=== PATIENT | female | born 1985 ===

== ENCOUNTER 2016-09-12 11:02 | Emergency (ER) | payer OTHER ==
[2016-09-12 11:07] VITALS: BP 122/51; PULSE 86; TEMP 98; O2SAT 98; BMI 27.9
[2016-09-12 11:20] VITALS: RESP 16
--- NOTE | 2016-09-12 12:15 | ED PDOC ---
HPI: Back Time Seen by Provider: 09/12/16 12:12 Chief Complaint (Nursing): Back Pain Chief Complaint (Provider): BACK PAIN History Per: Patient (31 Y/O FEMALE HERE FOR LOWER BACK PAIN X 2 DAYS. PATIENT STATES PAIN BEGAN DUE TO HEAVY LIFTING AT WORK. DENIES ANY FALL. NO COMPLAINT OF URINARY OR RECTAL INCONTINENCE. HAS ATTEMPTED ADVIL 2 TAB YESTERDAY WITHOUT RELIEF.) Past Medical History Reviewed: Historical Data, Nursing Documentation, Vital Signs Vital Signs: Last Vital Signs Temp 98 F 09/12/16 11:16 Pulse 86 09/12/16 11:16 Resp 16 09/12/16 11:16 BP 122/51 L 09/12/16 11:16 Pulse Ox 98 09/12/16 11:16 - Surgical History Surgical History: Denies: Back Surgery, CABG - Family History Family History: States: Unknown Family Hx - Immunization History Hx Tetanus Toxoid Vaccination: No Hx Influenza Vaccination: No Hx Pneumococcal Vaccination: No - Home Medications Home Medications: Ambulatory Orders Medication Instructions Recorded Sulfamethoxazole/Trimethoprim 1 tab PO BID #20 tab 01/19/13 [Bactrim DS 800 mg-160 mg] Fluconazole [Diflucan] 150 mg PO ONCE #2 tab 02/15/14 Amoxicillin 500 mg PO TID 10 Days 04/25/14 Ibuprofen [Motrin] 600 mg PO Q8 PRN #6 tab 04/25/14 Nitrofurantoin Macrocrystals 100 mg PO BID #13 cap 12/06/14 [Macrobid] Phenazopyridine Hydrochlorid2 200 mg PO TID #5 tab 12/06/14 [Pyridium] Fluconazole [Diflucan] 150 mg PO ONCE #1 tab 07/08/15 Ibuprofen 600 mg PO Q6 PRN #15 tablet 07/08/15 Azithromycin [Zithromax] 250 mg PO DAILY #6 tab 12/23/15 Naproxen [Naprosyn Tab] 375 mg PO Q8 PRN #21 tab 09/12/16 diaZEpam [Valium] 5 mg PO Q6 PRN #6 tab 09/12/16 - Allergies Allergies/Adverse Reactions: Allergies Allergy/AdvReac Type Severity Reaction Status Date / Time No Known Allergies Allergy Verified 09/12/16 11:16 Review of Systems ROS Statement: Except As Marked, All Systems Reviewed And Found Negative Musculoskeletal: Positive for: Back Pain Physical Exam - Reviewed Nursing Documentation Reviewed: Yes Vital Signs Reviewed: Yes - Physical Exam Appears: Positive for: Well, Non-toxic, No Acute Distress Head Exam: Positive for: ATRAUMATIC, NORMAL INSPECTION, NORMOCEPHALIC Skin: Positive for: Normal Color, Warm, DRY Eye Exam: Positive for: EOMI, Normal appearance, PERRL ENT: Positive for: Normal ENT Inspection Neck: Positive for: Normal, Painless ROM Cardiovascular/Chest: Positive for: Regular Rate, Rhythm Respiratory: Positive for: CNT, Normal Breath Sounds Gastrointestinal/Abdominal: Positive for: Normal Exam, Bowel Sounds, Soft Back: Positive for: Normal Inspection, Other (PARALUMBAR TENDERNESS NOTED.) Extremity: Positive for: Normal ROM Neurologic/Psych: Positive for: Alert, Oriented - ECG O2 Sat by Pulse Oximetry: 98 - Progress ED Course And Treament: TORADOL 30 MG IM X 1 DOSE Disposition - Clinical Impression Clinical Impression: Back strain - Patient ED Disposition Is Patient to be Admitted: No - Disposition Referrals: [facility] [Outside] Disposition: Routine/Home Disposition Time: 12:13 Condition: FAIR Prescriptions: diaZEpam [Valium] 5 mg PO Q6 PRN #6 tab PRN Reason: Pain, Severe (8-10) Naproxen [Naprosyn Tab] 375 mg PO Q8 PRN #21 tab PRN Reason: Pain, Moderate (4-7) Instructions: Sciatica (ED), Acute Low Back Pain (ED) Forms: [facility] ED School/Work Excuse Print Language: GERMAN
== END 2016-09-12 12:39 | disposition home or self-care (01) ==
LOC: H.ER 11:02
DX: M54.30 Sciatica, unspecified side (principal)

== ENCOUNTER 2016-11-05 11:37 | Emergency (ER) | payer OTHER ==
[2016-11-05 11:37] VITALS: BMI 27.9
[2016-11-05 11:48] VITALS: BP 121/71; PULSE 85; RESP 19; TEMP 98; O2SAT 100
--- NOTE | 2016-11-05 12:41 | ED PDOC ---
HPI: Headache Time Seen by Provider: 11/05/16 11:44 Chief Complaint (Nursing): Headache Chief Complaint (Provider): Syncopal episode History Per: Patient History/Exam Limitations: no limitations Onset/Duration Of Symptoms: Hrs (30 minutes prior to arrival) Current Symptoms Are (Timing): Still Present Additional Complaint(s): Yamini Ray is a 31 y/o female who presents to the ED for evaluation for a syncopal episode, occurring 30 minutes prior to arrival. Patient reports experiencing shortness of breath and passing out, after her sister made a statement making fun of her. Domestic partner witnessed the incident and denies head trauma, states patient was out for 3 minutes with no bleeding, shaking, seizure, or incontinence. Patient denies vision changes, neck stiffness, weakness, and paresthesias. She states this has happened several times in the past in situations where she gets upset, but "this passing out was stronger". Also complaining of right-sided, daily headache ongoing for 1 month. Interpretation was provided by resin painter #[id number]. PMD: Unknown Past Medical History Reviewed: Historical Data, Nursing Documentation, Vital Signs Vital Signs: Last Vital Signs Temp 98.0 F 11/05/16 11:44 Pulse 85 11/05/16 11:44 Resp 19 11/05/16 11:44 BP 121/71 11/05/16 11:44 Pulse Ox 100 11/05/16 11:44 - Medical History PMH: No Chronic Diseases - Surgical History Surgical History: Denies: Back Surgery, CABG Other surgeries: Tubal ligation - Family History Family History: States: Unknown Family Hx - Social History Current smoker - smoking cessation education provided: No Alcohol: None Drugs: Denies - Immunization History Hx Tetanus Toxoid Vaccination: No Hx Influenza Vaccination: No Hx Pneumococcal Vaccination: No - Home Medications Home Medications: Ambulatory Orders Medication Instructions Recorded Sulfamethoxazole/Trimethoprim 1 tab PO BID #20 tab 01/19/13 [Bactrim DS 800 mg-160 mg] Fluconazole [Diflucan] 150 mg PO ONCE #2 tab 02/15/14 Amoxicillin 500 mg PO TID 10 Days 04/25/14 Ibuprofen [Motrin] 600 mg PO Q8 PRN #6 tab 04/25/14 Nitrofurantoin Macrocrystals 100 mg PO BID #13 cap 12/06/14 [Macrobid] Phenazopyridine Hydrochlorid2 200 mg PO TID #5 tab 12/06/14 [Pyridium] Fluconazole [Diflucan] 150 mg PO ONCE #1 tab 07/08/15 Ibuprofen 600 mg PO Q6 PRN #15 tablet 07/08/15 Azithromycin [Zithromax] 250 mg PO DAILY #6 tab 12/23/15 Naproxen [Naprosyn Tab] 375 mg PO Q8 PRN #21 tab 09/12/16 diaZEpam [Valium] 5 mg PO Q6 PRN #6 tab 09/12/16 - Allergies Allergies/Adverse Reactions: Allergies Allergy/AdvReac Type Severity Reaction Status Date / Time No Known Allergies Allergy Verified 09/12/16 11:16 Review of Systems ROS Statement: Except As Marked, All Systems Reviewed And Found Negative Constitutional: Negative for: Other (bleeding, head trauma) Genitourinary Female: Negative for: Incontinence Musculoskeletal: Negative for: Neck Pain (or stiffness) Neurological: Positive for: Headache (right sided), Other (syncope). Negative for: Weakness (and paresthesias), Seizures Physical Exam - Reviewed Nursing Documentation Reviewed: Yes Vital Signs Reviewed: Yes - Physical Exam Appears: Positive for: Well, Non-toxic, No Acute Distress Head Exam: Positive for: ATRAUMATIC, NORMAL INSPECTION, NORMOCEPHALIC Skin: Positive for: Normal Color, Warm, DRY Eye Exam: Positive for: EOMI, Normal appearance, PERRL Neck: Positive for: Normal, Painless ROM, Supple Cardiovascular/Chest: Positive for: Regular Rate, Rhythm. Negative for: Murmur Respiratory: Positive for: Normal Breath Sounds. Negative for: Accessory Muscle Use, Respiratory Distress Gastrointestinal/Abdominal: Positive for: Normal Exam, Soft. Negative for: Tenderness Back: Positive for: Normal Inspection. Negative for: Vertebral Tenderness Extremity: Positive for: Normal ROM. 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 Negative for: Motor/Sensory Deficits, Aphasia, Facial Droop - ECG Interpretation Of ECG: NSR @ 75, no ST-T changes. O2 Sat by Pulse Oximetry: 100 (RA) Pulse Ox Interpretation: Normal Medical Decision Making Medical Decision Making: Time: 12:08 Impression: "Syncope" and Headache Initial Plan: --ED urine test --EKG --Pending CT Head w/o contrast Time: 13:51 CT Head w/o contrast: FINDINGS: HEMORRHAGE: No intracranial hemorrhage. BRAIN: No mass effect or edema. No atrophy or chronic microvascular ischemic changes. VENTRICLES: Unremarkable. No hydrocephalus. CALVARIUM: Unremarkable. PARANASAL SINUSES: Unremarkable as visualized. No significant inflammatory changes. MASTOID AIR CELLS: Unremarkable as visualized. No inflammatory changes. OTHER FINDINGS: None. IMPRESSION: No acute intracranial abnormalities. No significant findings to account for the clinical presentation. GoNormal CT of the Head. Time: 14:30 Clinical Impression: Syncope, Headache Upon provider evaluation patient is medically stable, and requires no further treatment in the ED at this time. Patient will be discharged home and instructed to take Tylenol or Motrin prn for pain. Counseling was provided and all questions were answered regarding diagnosis and need for follow up with PMD. There is agreement to discharge plan. Return if symptoms persist or worsen. Scribe Attestation: Documented by Emily Arguello, acting as a scribe for Myra Tellez MD Provider Scribe Attestation: All medical record entries made by the Scribe were at my direction and personally dictated by me. I have reviewed the chart and agree that the record accurately reflects my personal performance of the history, physical exam, medical decision making, and the department course for this patient. I have also personally directed, reviewed, and agree with the discharge instructions and disposition. Disposition - Clinical Impression Clinical Impression: Headache, Syncope - Patient ED Disposition Is Patient to be Admitted: No Doctor Will See Patient In The: Office Counseled Patient/Family Regarding: Studies Performed, Diagnosis, Need For Followup - Disposition Referrals: [facility] [Outside] Disposition: Routine/Home Disposition Time: 14:22 Condition: STABLE Additional Instructions: TAKE TYLENOL OR MOTRIN NEEDED FOR PAIN. Instructions: Syncope (ED), General Headache (ED) Forms: [employer] (Martiniquais) Print Language: UPPER SORBIAN
--- NOTE | 2016-11-05 13:52 | CT ---
PROCEDURE: CT HEAD WITHOUT CONTRAST. HISTORY: ESCOBAR COMPARISON: None available. TECHNIQUE: Axial computed tomography images were obtained through the head/brain without intravenous contrast. Radiation dose: Total exam DLP = 732.33 mGy-cm. This CT exam was performed using one or more of the following dose reduction techniques: Automated exposure control, adjustment of the mA and/or kV according to patient size, and/or use of iterative reconstruction technique. FINDINGS: HEMORRHAGE: No intracranial hemorrhage. BRAIN: No mass effect or edema. No atrophy or chronic microvascular ischemic changes. VENTRICLES: Unremarkable. No hydrocephalus. CALVARIUM: Unremarkable. PARANASAL SINUSES: Unremarkable as visualized. No significant inflammatory changes. MASTOID AIR CELLS: Unremarkable as visualized. No inflammatory changes. OTHER FINDINGS: None. IMPRESSION: No acute intracranial abnormalities. No significant findings to account for the clinical presentation. GoNormal CT of the Head.
--- NOTE | 2016-11-05 21:49 | CARD ---
APPROVED REPORT EKG Measurement Heart [id number] <Conclusion> Normal sinus rhythm Normal ECG
== END 2016-11-05 14:38 | disposition home or self-care (01) ==
LOC: H.ER 11:37
DX: R55 Syncope and collapse (principal); R51 Headache

== ENCOUNTER 2016-12-11 12:16 | Observation (INO) | payer OTHER ==
[2016-12-11 12:16] VITALS: BMI 27.9
[2016-12-11 12:34] VITALS: TEMP 97
[2016-12-11] MEDS ORDERED: Sodium Chloride 0.9% 1,000 ML IV STA (13:28)
[2016-12-11 13:59] VITALS: RESP 14; O2SAT 100
[2016-12-11 14:03] LABS: BASO % 0.6 % (0.0-2.0); EOS # 0.2 K/uL (0.0-0.7); EOS % 3.8 % (0.0-4.0); HEMATOCRIT 35.7 % (34.0-47.0); LYMPH # 1.5 K/uL (1.0-4.3); LYMPH % 25.3 % (20.0-40.0); MEAN CELL VOLUME 83.5 fl (81.0-99.0); MEAN CORPUSCULAR HEMOGLOBIN 28.8 pg (27.0-31.0); MEAN CORPUSCULAR HGB CONC 34.4 g/dL (33.0-37.0); MEAN PLATELET VOLUME 8.1 fl (7.2-11.7); MONO # 0.7 K/uL (0.0-0.8); NEUT # 3.4 K/uL (1.8-7.0); NEUT % 58.3 % (50.0-75.0); RED CELL DISTRIBUTION WIDTH 14.3 % (11.5-14.5); WHITE BLOOD COUNT 5.8 K/uL (4.8-10.8)
[2016-12-11 14:14] LABS: RBC URINE 2 /hpf (0-3); URINE BILIRUBIN NEGATIVE (NEGATIVE); URINE BLOOD SMALL (NEGATIVE); URINE COLOR STRAW (YELLOW); URINE GLUCOSE (UA) NEG (Normal); URINE KETONE NEGATIVE (NEGATIVE); URINE LEUKOCYTE ESTERASE NEG Leu/uL (Negative); URINE PROTEIN NEGATIVE (NEGATIVE); URINE UROBILINOGEN 0.2-1.0 mg/dL (0.2-1.0); WBC URINE < 1 /hpf (0-5)
--- NOTE | 2016-12-11 14:16 | ED PDOC ---
HPI: Abdomen Time Seen by Provider: 12/11/16 12:52 Chief Complaint (Nursing): Abdominal Pain Chief Complaint (Provider): Abdominal Pain History Per: Patient History/Exam Limitations: no limitations Onset/Duration Of Symptoms: Days (x7) Current Symptoms Are (Timing): Still Present Additional Complaint(s): Yamini Douglas is a 31 year old female with a past surgical history of tubal ligation presenting to the ED for an evaluation of abdominal pain occurring for 1 week. The patient also complains of associated bilateral ear pain. She denies fever, nausea, vomiting, diarrhea, constipation, or any genitourinary symptoms. PMD: None Provided Past Medical History Reviewed: Historical Data, Nursing Documentation, Vital Signs Vital Signs: Last Vital Signs Temp 97.0 F L 12/11/16 12:31 Pulse 63 12/11/16 13:58 Resp 14 12/11/16 13:58 BP 119/70 12/11/16 13:58 Pulse Ox 100 12/11/16 16:14 - Medical History PMH: No Chronic Diseases - Surgical History Surgical History: Denies: Back Surgery, CABG Other surgeries: tubal ligation - Family History Family History: States: Unknown Family Hx - Social History Current smoker - smoking cessation education provided: No Ex-Smoker (has not smoked in the last 12 months): No Alcohol: None Drugs: Denies - Immunization History Hx Tetanus Toxoid Vaccination: No Hx Influenza Vaccination: No Hx Pneumococcal Vaccination: No - Home Medications Home Medications: Ambulatory Orders Medication Instructions Recorded Sulfamethoxazole/Trimethoprim 1 tab PO BID #20 tab 01/19/13 [Bactrim DS 800 mg-160 mg] Fluconazole [Diflucan] 150 mg PO ONCE #2 tab 02/15/14 Amoxicillin 500 mg PO TID 10 Days 04/25/14 Ibuprofen [Motrin] 600 mg PO Q8 PRN #6 tab 04/25/14 Nitrofurantoin Macrocrystals 100 mg PO BID #13 cap 12/06/14 [Macrobid] Phenazopyridine Hydrochlorid2 200 mg PO TID #5 tab 12/06/14 [Pyridium] Fluconazole [Diflucan] 150 mg PO ONCE #1 tab 07/08/15 Ibuprofen 600 mg PO Q6 PRN #15 tablet 07/08/15 Azithromycin [Zithromax] 250 mg PO DAILY #6 tab 12/23/15 Naproxen [Naprosyn Tab] 375 mg PO Q8 PRN #21 tab 09/12/16 diaZEpam [Valium] 5 mg PO Q6 PRN #6 tab 09/12/16 Naproxen [Naprosyn] 500 mg PO BID PRN #15 tablet 12/11/16 - Allergies Allergies/Adverse Reactions: Allergies Allergy/AdvReac Type Severity Reaction Status Date / Time No Known Allergies Allergy Verified 12/11/16 12:31 Review of Systems ROS Statement: Except As Marked, All Systems Reviewed And Found Negative Constitutional: Negative for: Fever ENT: Positive for: Ear Pain (bilateral) Gastrointestinal: Positive for: Abdominal Pain. Negative for: Nausea, Vomiting , Diarrhea, Constipation Genitourinary Female: Negative for: Dysuria, Frequency, Incontinence, Hematuria , Vaginal Discharge, Vaginal Bleeding, Pelvic Pain, Rash, Other Physical Exam - Reviewed Nursing Documentation Reviewed: Yes Vital Signs Reviewed: Yes - Physical Exam Appears: Positive for: Non-toxic, No Acute Distress Head Exam: Positive for: ATRAUMATIC, NORMOCEPHALIC Skin: Positive for: Normal Color, Warm, Dry Eye Exam: Positive for: Normal appearance Cardiovascular/Chest: Positive for: Regular Rate, Rhythm Respiratory: Positive for: Normal Breath Sounds. Negative for: Respiratory Distress Gastrointestinal/Abdominal: Positive for: Soft, Tenderness (bilateral lower quadrant tenderness). Negative for: Guarding, Rebound Neurologic/Psych: Positive for: Alert, Oriented (x3). Negative for: Motor/ Sensory Deficits - Laboratory Results Result Diagrams: 12/11/16 13:50 12/11/16 13:50 - ECG O2 Sat by Pulse Oximetry: 100 (RA) Pulse Ox Interpretation: Normal Medical Decision Making Medical Decision Making: Time: 12:52 Impression: Abdominal pain associated with bilateral ear pain Plan: * CMP * Lipase * CBC (with differential) * Urinalysis * Morhpine 2 mg IV * NS 0.9% 1,000 ml IV 1,000 mls/hr * Zofran Inj 4 mg IV * US Pelvis/Transvag * Reevaluation Scribe Attestation: Documented by Monique Christy, acting as a scribe for Myra Tellez MD. Provider Scribe Attestation: All medical record entries made by the Scribe were at my direction and personally dictated by me. I have reviewed the chart and agree that the record accurately reflects my personal performance of the history, physical exam, medical decision making, and the department course for this patient. I have also personally directed, reviewed, and agree with the discharge instructions and disposition. ED OBSERVATION Date of observation admission: 12/11/16 Time of observation admission: 14:00 - Observation admission statement Patient is being placed in observation because:: Time intensive ED evaluation. - Goals of Observation Goals of observation are:: Results of ED workup and eventual disposition. - Progress Note Progress Note: 12/11/16 16:13 Pt is resting comfortably. Vitals are stable. 12/11/16 17:45 Patient is stable, resting comfortably. Disposition - Clinical Impression Clinical Impression: Pelvic pain - Disposition Condition: STABLE
[2016-12-11 14:17] LABS: ALB/GLOB RATIO 1.4 (1.0-2.1); ALKALINE PHOSPHATASE 62 U/L (38-126); ALT/SGPT 32 U/L (9-52); AST/SGOT 36 U/L (14-36); BILIRUBIN,TOTAL 0.9 mg/dl (0.2-1.3); BLOOD UREA NITROGEN 8 mg/dl (7-17); CALCIUM 9.6 mg/dL (8.4-10.2); CARBON DIOXIDE 25 mmol/L (22-30); CHLORIDE 101 mmol/L (98-107); GFR AFRICAN-AMERICAN > 60; GLUCOSE,RANDOM 94 mg/dL (65-105); LIPASE 39 U/L (23-300); SODIUM 138 mmol/l (132-148); TOTAL PROTEIN 7.7 G/DL (6.3-8.2)
--- NOTE | 2016-12-11 16:54 | US ---
HISTORY: Lower abdominal pain. LMP 11/28/2016. COMPARISON: 09/02/2016 TECHNIQUE: Transvaginal only. Real -time technique with 2D, duplex and color Doppler FINDINGS: UTERUS: Measures 3.8 x 5.2 x 10.9 cm. Normal in size and appearance. No fibroid or other mass lesion seen. ENDOMETRIUM: Measures 6.8 mm in diameter. No ultrasound findings to suggest gestational sac, fluid, debris, mass or polyp or other pathologic process within the endometrium. CERVIX: No cervical abnormality identified. RIGHT OVARY: Measures 2.1 x 3 x 3.5 cm. No solid mass. Normal flow. Multiple subcentimeter follicles. LEFT OVARY: Measures 2.3 x 2.8 x 3 cm. No solid mass. Normal flow. Multiple subcentimeter follicles. FREE FLUID: No significant free fluid noted. OTHER FINDINGS: None. IMPRESSION: No significant or acute findings to account for/ related to the clinical presentation. No significant interval change compared to the prior examination(s).
[2016-12-11 18:15] VITALS: BP 132/62; PULSE 67
== END 2016-12-11 18:16 | disposition home or self-care (01) ==
LOC: H.ER 12:16 → H.EROBSV 14:00
PROVIDERS: ADMIT Emergency Medicine; ATTEND Emergency Medicine
DX: R10.2 Pelvic and perineal pain (principal); H92.03 Otalgia, bilateral; Z98.51 Tubal ligation status
CPT/HCPCS: 76830; 76856; 80053; 81003; 81025; 83690; 85025; 96360; 99284; G0378; J2270; J2405; J7040

== ENCOUNTER 2017-02-12 17:26 | Emergency (ER) | payer OTHER ==
[2017-02-12 17:26] VITALS: BMI 27.9
[2017-02-12 18:20] VITALS: BP 120/68; PULSE 65; RESP 18; TEMP 97.5; O2SAT 100
[2017-02-12 18:46] LABS: RBC URINE 2 /hpf (0-3); URINE BACTERIA RARE (<OCC); URINE BILIRUBIN NEGATIVE (NEGATIVE); URINE BLOOD NEGATIVE (NEGATIVE); URINE COLOR YELLOW (YELLOW); URINE GLUCOSE (UA) NEG (Normal); URINE KETONE NEGATIVE (NEGATIVE); URINE LEUKOCYTE ESTERASE NEG Leu/uL (Negative); URINE PROTEIN NEGATIVE (NEGATIVE); URINE UROBILINOGEN 0.2-1.0 mg/dL (0.2-1.0); WBC URINE 2 /hpf (0-5)
--- NOTE | 2017-02-12 19:20 | ED PDOC ---
HPI: Female Pain Time Seen by Provider: 02/12/17 18:20 Chief Complaint (Nursing): Female Genitourinary Chief Complaint (Provider): Pelvic Pain History Per: Patient Onset/Duration Of Symptoms: Days (x 4 ) Current Symptoms Are (Timing): Still Present Additional Complaint(s): Yamini is a 31 year old female who presents to the Emergency Department complaining of pelvic pain for 4 days. Patient states cramping pain is associated with hematuria, dysuria and frequency with clear whitish vaginal discharge. Reports similar episodes in the past. Was given antibiotics, but does not remember which one she took. Admits to taking Advil yesterday with minor relief. Denies back pain, fever, chills and gastrointestinal complaints. PMD: No Family Provider Past Medical History Reviewed: Historical Data, Nursing Documentation, Vital Signs Vital Signs: Last Vital Signs Temp 97.5 F L 02/12/17 18:19 Pulse 65 02/12/17 18:19 Resp 18 02/12/17 18:19 BP 120/68 02/12/17 18:19 Pulse Ox 100 02/12/17 18:19 - Medical History PMH: No Chronic Diseases - Surgical History Surgical History: Denies: Back Surgery, CABG Other surgeries: Tubal Ligation - Family History Family History: States: Unknown Family Hx - Social History Current smoker - smoking cessation education provided: No Alcohol: None - Immunization History Hx Tetanus Toxoid Vaccination: No Hx Influenza Vaccination: No Hx Pneumococcal Vaccination: No - Home Medications Home Medications: Ambulatory Orders Medication Instructions Recorded Sulfamethoxazole/Trimethoprim 1 tab PO BID #20 tab 01/19/13 [Bactrim DS 800 mg-160 mg] Fluconazole [Diflucan] 150 mg PO ONCE #2 tab 02/15/14 Amoxicillin 500 mg PO TID 10 Days cap 04/25/14 Ibuprofen [Motrin] 600 mg PO Q8 PRN #6 tab 04/25/14 Nitrofurantoin Macrocrystals 100 mg PO BID #13 cap 12/06/14 [Macrobid] Phenazopyridine Hydrochlorid2 200 mg PO TID #5 tab 12/06/14 [Pyridium] Fluconazole [Diflucan] 150 mg PO ONCE #1 tab 07/08/15 Ibuprofen 600 mg PO Q6 PRN #15 tablet 07/08/15 Azithromycin [Zithromax] 250 mg PO DAILY #6 tab 12/23/15 Naproxen [Naprosyn Tab] 375 mg PO Q8 PRN #21 tab 09/12/16 diaZEpam [Valium] 5 mg PO Q6 PRN #6 tab 09/12/16 Naproxen [Naprosyn] 500 mg PO BID PRN #15 tablet 12/11/16 Fluconazole [Diflucan] 150 mg PO QWK #2 tab 02/12/17 Ibuprofen [Motrin Tab] 600 mg PO Q8 PRN #30 tab 02/12/17 - Allergies Allergies/Adverse Reactions: Allergies Allergy/AdvReac Type Severity Reaction Status Date / Time No Known Allergies Allergy Verified 02/12/17 18:09 Review of Systems ROS Statement: Except As Marked, All Systems Reviewed And Found Negative Constitutional: Negative for: Fever, Chills Gastrointestinal: Positive for: Other Genitourinary Female: Positive for: Dysuria, Frequency, Hematuria, Vaginal Discharge (Clear white), Other (Pelvic Pain) Physical Exam - Reviewed Nursing Documentation Reviewed: Yes Vital Signs Reviewed: Yes - Physical Exam Appears: Positive for: Non-toxic, No Acute Distress Head Exam: Positive for: ATRAUMATIC, NORMOCEPHALIC Skin: Positive for: Warm, Dry Gastrointestinal/Abdominal: Positive for: Soft, Tenderness (mild suprapubic). Negative for: Mass, Distended, Guarding, Rebound Back: Positive for: Normal Inspection. Negative for: L CVA Tenderness, R CVA Tenderness Lymphatic: Negative for: Inguinal Node Tenderness Neurologic/Psych: Positive for: Alert. Negative for: Motor/Sensory Deficits - ECG O2 Sat by Pulse Oximetry: 100 (RA) Pulse Ox Interpretation: Normal Medical Decision Making Medical Decision Making: Time: 18:21 - Reviewed previous charts. Presented here with similar symptoms Impression: Vaginitis Plan: - Urine Culture - Urinalysis Time: 19:04 - Chlamydia/GC RNA, TMA Scribe Attestation: Documented by Kiet Marin, acting as a scribe for Nicole Cutler MD. Provider Scribe Attestation: All medical record entries made by the Scribe were at my direction and personally dictated by me. I have reviewed the chart and agree that the record accurately reflects my personal performance of the history, physical exam, medical decision making, and the department course for this patient. I have also personally directed, reviewed, and agree with the discharge instructions and disposition. Disposition - Clinical Impression Clinical Impression: Vaginitis - Disposition Referrals: [facility] [Outside] ([facility]) Disposition: Routine/Home Disposition Time: 19:00 Condition: GOOD Prescriptions: Fluconazole [Diflucan] 150 mg PO QWK #2 tab Ibuprofen [Motrin Tab] 600 mg PO Q8 PRN #30 tab PRN Reason: Pain, Moderate (4-7) Instructions: Vaginitis (ED) Print Language: MARSHALLESE
== END 2017-02-12 19:25 | disposition home or self-care (01) ==
LOC: H.ER 17:26
DX: N76.0 Acute vaginitis (principal)

== ENCOUNTER 2017-05-21 07:04 | Emergency (ER) | payer OTHER ==
[2017-05-21 07:04] VITALS: BMI 27.9
[2017-05-21 07:23] VITALS: BP 106/74; PULSE 87; RESP 19; TEMP 98.7; O2SAT 100
--- NOTE | 2017-05-21 08:08 | ED PDOC ---
HPI: Abdomen Time Seen by Provider: 05/21/17 07:13 Chief Complaint (Nursing): Abdominal Pain Chief Complaint (Provider): Abdominal Pain History Per: Patient History/Exam Limitations: no limitations Onset/Duration Of Symptoms: Days (x 1) Current Symptoms Are (Timing): Still Present Associated Symptoms: denies: Fever, Nausea, Vomiting, Diarrhea, Constipation, Urinary Symptoms Additional Complaint(s): Ms. Kc is a 32 year old female who presents to the ED with lower abdominal pain for 1 day. Patient reports she took Tylenol without relief. No fever, nausea, vomiting, diarrhea, constipation or symptoms. No other medical problems at this time. PMD: No Family Provider Past Medical History Reviewed: Historical Data, Nursing Documentation, Vital Signs Vital Signs: Last Vital Signs Temp 98.7 F 05/21/17 07:20 Pulse 87 05/21/17 07:20 Resp 19 05/21/17 07:20 BP 106/74 05/21/17 07:20 Pulse Ox 100 05/21/17 12:34 - Medical History PMH: No Chronic Diseases - Surgical History Surgical History: Denies: Back Surgery, CABG Other surgeries: Tubal Ligation - Family History Family History: States: Unknown Family Hx - Immunization History Hx Tetanus Toxoid Vaccination: No Hx Influenza Vaccination: No Hx Pneumococcal Vaccination: No - Home Medications Home Medications: Ambulatory Orders Medication Instructions Recorded Sulfamethoxazole/Trimethoprim 1 tab PO BID #20 tab 01/19/13 [Bactrim DS 800 mg-160 mg] Fluconazole [Diflucan] 150 mg PO ONCE #2 tab 02/15/14 Amoxicillin 500 mg PO TID 10 Days cap 04/25/14 Ibuprofen [Motrin] 600 mg PO Q8 PRN #6 tab 04/25/14 Nitrofurantoin Macrocrystals 100 mg PO BID #13 cap 12/06/14 [Macrobid] Phenazopyridine Hydrochlorid2 200 mg PO TID #5 tab 12/06/14 [Pyridium] Fluconazole [Diflucan] 150 mg PO ONCE #1 tab 07/08/15 Ibuprofen 600 mg PO Q6 PRN #15 tablet 07/08/15 Azithromycin [Zithromax] 250 mg PO DAILY #6 tab 12/23/15 Naproxen [Naprosyn Tab] 375 mg PO Q8 PRN #21 tab 09/12/16 diaZEpam [Valium] 5 mg PO Q6 PRN #6 tab 09/12/16 Naproxen [Naprosyn] 500 mg PO BID PRN #15 tablet 12/11/16 Fluconazole [Diflucan] 150 mg PO QWK #2 tab 02/12/17 Ibuprofen [Motrin Tab] 600 mg PO Q8 PRN #30 tab 02/12/17 - Allergies Allergies/Adverse Reactions: Allergies Allergy/AdvReac Type Severity Reaction Status Date / Time No Known Allergies Allergy Verified 02/12/17 18:09 Review of Systems ROS Statement: Except As Marked, All Systems Reviewed And Found Negative Constitutional: Negative for: Fever Gastrointestinal: Positive for: Abdominal Pain. Negative for: Nausea, Vomiting , Diarrhea, Constipation Genitourinary Female: Negative for: Dysuria, Hematuria Physical Exam - Reviewed Nursing Documentation Reviewed: Yes Vital Signs Reviewed: Yes - Physical Exam Appears: Positive for: Non-toxic Head Exam: Positive for: ATRAUMATIC, NORMAL INSPECTION, NORMOCEPHALIC Skin: Positive for: Normal Color, Warm, Dry Eye Exam: Positive for: Normal appearance, EOMI, PERRL ENT: Positive for: Normal ENT Inspection Neck: Positive for: Normal Cardiovascular/Chest: Positive for: Regular Rate, Rhythm Respiratory: Negative for: Accessory Muscle Use, Respiratory Distress Gastrointestinal/Abdominal: Positive for: Tenderness (Mild LLQ tenderness) Extremity: Positive for: Normal ROM. Negative for: Deformity Neurologic/Psych: Positive for: Alert, Oriented (x 3) - Laboratory Results Urine POC: Negative - ECG O2 Sat by Pulse Oximetry: 100 (RA) Pulse Ox Interpretation: Normal Medical Decision Making Medical Decision Making: Time: 07:28 Impression: Pelvic Pain Plan: - ED Urine - ED Urine Dipstick - Pelvis/Transvaginal Ultrasound Time: 10:18 Pelvis/Transvaginal Ultrasound FINDINGS: The uterus is anteverted measuring approximately 9.9 x 4.9 x 3.6 cm. No obvious uterine masses are identified. The endometrial stripe is thickened at 1.58 cm which could be due to attendance secretary phase of the endometrial cycle however repeat transvaginal pelvic ultrasound during the next menstrual cycle shortly following cessation of menses recommended to assess for yazdanism of normal endometrial thickness and exclude other pathology including endometrial hyperplasia, endometrial polyps or less likely endometrial carcinoma. . . No free fluid seen in the cul de sac. Right ovary measures approximately 3.7 x 3.7 x 2.1 cm with a complex cyst measuring 2.05 x 1.6 x 1.6 cm. Right ovary exhibits arterial flow. Left ovary measures approximately 2.6 x 2.0 x 2.1 cm and contains multiple follicular cysts. Left ovary also exhibits arterial flow. IMPRESSION: Prominent endometrial which is likely secondary to the attendance secretary phase of the endometrial cycle however other pathology should probably be excluded with followup ultrasound. There is also a complex right ovarian cyst. Repeat transvaginal pelvic ultrasound recommended during the next menstrual cycle shortly following cessation of menses to assess for yazdanism of normal endometrial thickness and better assess the aforementioned complex cyst. Scribe Attestation: Documented by Kiet Marin, acting as a scribe for Myra Tellez MD. Provider Scribe Attestation: All medical record entries made by the Scribe were at my direction and personally dictated by me. I have reviewed the chart and agree that the record accurately reflects my personal performance of the history, physical exam, medical decision making, and the department course for this patient. I have also personally directed, reviewed, and agree with the discharge instructions and disposition. Disposition - Clinical Impression Clinical Impression: Pelvic pain - Patient ED Disposition Is Patient to be Admitted: No - Disposition Referrals: [facility] [Outside] FAMILY PROVIDER,NO [Primary Care Provider] - Disposition: Routine/Home Disposition Time: 10:39 Condition: STABLE Additional Instructions: TAKE MOTRIN NEEDED FOR PAIN. Instructions: Chronic Pelvic Pain in Women Forms: [employer] (English) Print Language: KOSOVAN
--- NOTE | 2017-05-21 10:20 | US ---
PROCEDURE: Pelvic ultrasound 05/21/2017. HISTORY: Left-sided pelvic pain. COMPARISON: Comparison made with prior study 12/11/2016. TECHNIQUE: Transabdominal sonographic evaluation of pelvis performed. FINDINGS: The uterus is anteverted measuring approximately 9.9 x 4.9 x 3.6 cm. No obvious uterine masses are identified. The endometrial stripe is thickened at 1.58 cm which could be due to executive secretary social welfare phase of the endometrial cycle however repeat transvaginal pelvic ultrasound during the next menstrual cycle shortly following cessation of menses recommended to assess for worship of normal endometrial thickness and exclude other pathology including endometrial hyperplasia, endometrial polyps or less likely endometrial carcinoma. . . No free fluid seen in the cul de sac. Right ovary measures approximately 3.7 x 3.7 x 2.1 cm with a complex cyst measuring 2.05 x 1.6 x 1.6 cm. Right ovary exhibits arterial flow. Left ovary measures approximately 2.6 x 2.0 x 2.1 cm and contains multiple follicular cysts. Left ovary also exhibits arterial flow. IMPRESSION: Prominent endometrial which is likely secondary to the executive secretary social welfare phase of the endometrial cycle however other pathology should probably be excluded with followup ultrasound. There is also a complex right ovarian cyst. Repeat transvaginal pelvic ultrasound recommended during the next menstrual cycle shortly following cessation of menses to assess for worship of normal endometrial thickness and better assess the aforementioned complex cyst.
== END 2017-05-21 10:47 | disposition home or self-care (01) ==
LOC: SUPCPDRO 07:04 → H.ER 07:04
DX: R10.2 Pelvic and perineal pain (principal)

== ENCOUNTER 2017-06-25 09:13 | Emergency (ER) | payer OTHER ==
[2017-06-25 09:13] VITALS: BMI 27.9
[2017-06-25 09:19] VITALS: TEMP 98.9
[2017-06-25 09:34] VITALS: RESP 18
--- NOTE | 2017-06-25 10:24 | ED PDOC ---
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 denies: Fever, Chills, Sputum, Myalgias, Nasal Congestion, Nausea, Vomiting, Diarrhea Ear Symptoms: Bilateral: Ear Pain Severity: Mild Additional History Per: Patient Additional Complaint(s): c/o fever, cough, congestion, headache, throat pain and bodyaches x 1 week. Past Medical History Reviewed: Historical Data, Nursing Documentation, Vital Signs Vital Signs: Last Vital Signs Temp 98.9 F 06/25/17 09:31 Pulse 76 06/25/17 09:31 Resp 18 06/25/17 09:31 BP 103/60 06/25/17 09:31 Pulse Ox 100 06/25/17 12:47 - Medical History PMH: No Chronic Diseases - Surgical History Surgical History: Denies: Back Surgery, CABG - Family History Family History: States: Unknown Family Hx - Living Arrangements Living Arrangements: With Family - Social History Current smoker - smoking cessation education provided: No - Immunization History Hx Tetanus Toxoid Vaccination: No Hx Influenza Vaccination: No Hx Pneumococcal Vaccination: No - Home Medications Home Medications: Ambulatory Orders Medication Instructions Recorded Sulfamethoxazole/Trimethoprim 1 tab PO BID #20 tab 01/19/13 [Bactrim DS 800 mg-160 mg] Fluconazole [Diflucan] 150 mg PO ONCE #2 tab 02/15/14 Amoxicillin 500 mg PO TID 10 Days cap 04/25/14 Ibuprofen [Motrin] 600 mg PO Q8 PRN #6 tab 04/25/14 Nitrofurantoin Macrocrystals 100 mg PO BID #13 cap 12/06/14 [Macrobid] Phenazopyridine Hydrochlorid2 200 mg PO TID #5 tab 12/06/14 [Pyridium] Fluconazole [Diflucan] 150 mg PO ONCE #1 tab 07/08/15 Ibuprofen 600 mg PO Q6 PRN #15 tablet 07/08/15 Azithromycin [Zithromax] 250 mg PO DAILY #6 tab 12/23/15 Naproxen [Naprosyn Tab] 375 mg PO Q8 PRN #21 tab 09/12/16 diaZEpam [Valium] 5 mg PO Q6 PRN #6 tab 09/12/16 Naproxen [Naprosyn] 500 mg PO BID PRN #15 tablet 12/11/16 Fluconazole [Diflucan] 150 mg PO QWK #2 tab 02/12/17 Ibuprofen [Motrin Tab] 600 mg PO Q8 PRN #30 tab 02/12/17 Albuterol HFA [Ventolin HFA 90 2 puff IH [id number] PRN #60 puff 06/25/17 mcg/actuation (8 g)] Azithromycin [Z-Anthony] 250 mg PO DAILY #6 tab 06/25/17 - Allergies Allergies/Adverse Reactions: Allergies Allergy/AdvReac Type Severity Reaction Status Date / Time No Known Allergies Allergy Verified 06/25/17 09:31 Curb-65 Severity Score - CURB-65 Severity Score Confusion: No Bun >19mg/dl (>7mmol/L): No Respiratory Rate greater than/equal to 30: No Systolic BP <90 or Diastolic BP less than/equal 60mmHg: No Age >64: No Curb-65 Score: 0 Percentage 30-day mortality: 0.6% Review of Systems ROS Statement: Except As Marked, All Systems Reviewed And Found Negative Constitutional: Negative for: Fever, Chills Cardiovascular: Negative for: Chest Pain, Palpitations Respiratory: Positive for: Cough, Shortness of Breath Gastrointestinal: Negative for: Nausea, Vomiting, Abdominal Pain Musculoskeletal: Negative for: Neck Pain Skin: Negative for: Rash Neurological: Negative for: Weakness, Numbness Physical Exam - Reviewed Nursing Documentation Reviewed: Yes Vital Signs Reviewed: Yes - Physical Exam Appears: Positive for: Uncomfortable Head Exam: Positive for: ATRAUMATIC, NORMAL INSPECTION, NORMOCEPHALIC Eye Exam: Positive for: Normal appearance, EOMI, PERRL Neck: Positive for: Normal, Painless ROM, Supple Cardiovascular/Chest: Positive for: Regular Rate, Rhythm, Chest Non Tender. Negative for: Edema Respiratory: Positive for: Normal Breath Sounds. Negative for: Decreased Breath Sounds, Accessory Muscle Use, Crackles, Rhonchi, Stridor, Wheezing, Respiratory Distress Gastrointestinal/Abdominal: Positive for: Normal Exam, Bowel Sounds, Soft. Negative for: Tenderness Extremity: Positive for: Normal ROM. 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 Negative for: Motor/Sensory Deficits - ECG O2 Sat by Pulse Oximetry: 100 Pulse Ox Interpretation: Normal - Radiology X-Ray: Interpreted by Me X-Ray Interpretation: No Acute Disease - Progress ED Course And Treament: advise cecy, pt agree's with plan, albuterol prn for cough, all of pt's questions were answered and pt agree's with plan. pt leaves ambulatory and in good spirits. Re-evaluation Time: 12:00 Condition: Improved Disposition - Clinical Impression Clinical Impression: Bronchitis, acute - Patient ED Disposition Is Patient to be Admitted: No Counseled Patient/Family Regarding: Studies Performed, Diagnosis, Need For Followup, Rx Given - Disposition Referrals: [facility] [Outside] (2 to 3 days) Disposition: Routine/Home Disposition Time: 12:00 Condition: GOOD Prescriptions: Albuterol HFA [Ventolin HFA 90 mcg/actuation (8 g)] 2 puff IH [id number] PRN #60 puff PRN Reason: Cough Azithromycin [Z-Anthony] 250 mg PO DAILY #6 tab Instructions: Acute Bronchitis, Adult (DC) Forms: [employer] (Japanese) Print Language: [place] ISLAND[place]
--- NOTE | 2017-06-25 11:47 | RAD ---
CLINICAL HISTORY: Cough, bilateral your pain EXAMINATION PERFORMED: Two-view chest COMPARISON EXAMINATIONS: NONE TECHNIQUE: Standard protocol for this examination/study. FINDINGS: No active pulmonary disease. No pulmonary nodules, masses or infiltrates. No evidence of acute, significant cardiovascular disease. No significant pleural, osseous or subdiaphragmatic abnormalities. IMPRESSION: No active disease.
[2017-06-25 14:34] VITALS: BP 110/70; PULSE 72; O2SAT 98
== END 2017-06-25 13:05 | disposition home or self-care (01) ==
LOC: H.ER 09:13
DX: J20.9 Acute bronchitis, unspecified (principal)

== ENCOUNTER 2018-01-03 16:24 | Emergency (ER) | payer OTHER ==
[2018-01-03 16:24] VITALS: BMI 27.9
[2018-01-03 17:04] VITALS: BP 111/72; PULSE 72; RESP 16; TEMP 98.7; O2SAT 99
--- NOTE | 2018-01-03 18:16 | ED PDOC ---
HPI: CCC, URI, Sore Throat Time Seen by Provider: 01/03/18 17:13 Chief Complaint (Nursing): Cough, Cold, Congestion Chief Complaint (Provider): Sore throat, headache, ear pain, bodyaches History Per: Patient History/Exam Limitations: no limitations Have you had recent travel within the past 21 days to any of the following countries: [place], [place], [place] or [place]?: No Onset/Duration Of Symptoms: Days Location Of Pain: Throat Sick Contacts (Context): None Associated Symptoms: Fever (Tactile, no temp taken at home ), Sore Throat. denies: Chills, Myalgias Ear Symptoms: Left: Ear Pain, Right: Ear Pain Additional Complaint(s): 32 yo female with no medical problems presents for evaluation of 1 week feeling feverish with ear pain and sore throat. Pt did not take anything at home today. Pt did not take her temperature at home. Pt did not take medications for symptoms. Pt did not see PMD. Past Medical History Reviewed: Historical Data, Nursing Documentation, Vital Signs Vital Signs: Last Vital Signs Temp 98.7 F 01/03/18 17:01 Pulse 72 01/03/18 17:01 Resp 16 01/03/18 17:01 BP 111/72 01/03/18 17:01 Pulse Ox 99 01/03/18 17:01 - Medical History PMH: No Chronic Diseases - Surgical History Surgical History: No Surg Hx Denies: Back Surgery, CABG - Family History Family History: States: Unknown Family Hx - Living Arrangements Living Arrangements: With Family - Social History Current smoker - smoking cessation education provided: No - Immunization History Hx Tetanus Toxoid Vaccination: No Hx Influenza Vaccination: No Hx Pneumococcal Vaccination: No - Home Medications Home Medications: Ambulatory Orders Medication Instructions Recorded Sulfamethoxazole/Trimethoprim 1 tab PO BID #20 tab 01/19/13 [Bactrim DS 800 mg-160 mg] Fluconazole [Diflucan] 150 mg PO ONCE #2 tab 02/15/14 Amoxicillin 500 mg PO TID 10 Days cap 04/25/14 Ibuprofen [Motrin] 600 mg PO Q8 PRN #6 tab 04/25/14 Nitrofurantoin Macrocrystals 100 mg PO BID #13 cap 12/06/14 [Macrobid] Phenazopyridine Hydrochlorid2 200 mg PO TID #5 tab 12/06/14 [Pyridium] Fluconazole [Diflucan] 150 mg PO ONCE #1 tab 07/08/15 Ibuprofen 600 mg PO Q6 PRN #15 tablet 07/08/15 Azithromycin [Zithromax] 250 mg PO DAILY #6 tab 12/23/15 Naproxen [Naprosyn Tab] 375 mg PO Q8 PRN #21 tab 09/12/16 diaZEpam [Valium] 5 mg PO Q6 PRN #6 tab 09/12/16 Naproxen [Naprosyn] 500 mg PO BID PRN #15 tablet 12/11/16 Fluconazole [Diflucan] 150 mg PO QWK #2 tab 02/12/17 Ibuprofen [Motrin Tab] 600 mg PO Q8 PRN #30 tab 02/12/17 Albuterol HFA [Ventolin HFA 90 2 puff IH [id number] PRN #60 puff 06/25/17 mcg/actuation (8 g)] Azithromycin [Z-Anthony] 250 mg PO DAILY #6 tab 06/25/17 Guaifen/Phenyleph/Acetaminophn 1 tab PO BID #14 tab 01/03/18 [Mucinex Fast-Max Cold & Sinus 325 mg-200 mg-5] Prednisone 50 mg PO ONCE #1 tablet 01/03/18 - Allergies Allergies/Adverse Reactions: Allergies Allergy/AdvReac Type Severity Reaction Status Date / Time No Known Allergies Allergy Verified 01/03/18 17:01 Review of Systems ROS Statement: Except As Marked, All Systems Reviewed And Found Negative Constitutional: Positive for: Fever (Subjective ). Negative for: Chills ENT: Positive for: Ear Pain Cardiovascular: Negative for: Chest Pain, Palpitations, Orthopnea Respiratory: Positive for: Cough. Negative for: Shortness of Breath, Hemoptysis Gastrointestinal: Negative for: Nausea, Vomiting, Abdominal Pain Physical Exam - Reviewed Nursing Documentation Reviewed: Yes Vital Signs Reviewed: Yes - Physical Exam Appears: Positive for: Well, Non-toxic, No Acute Distress Head Exam: Positive for: ATRAUMATIC, NORMAL INSPECTION, NORMOCEPHALIC Skin: Positive for: Normal Color, Warm, DRY Eye Exam: Positive for: Normal appearance ENT: Positive for: Normal ENT Inspection, Pharynx Is, TM Is/Are. Negative for: Sinus Pain/Drainage, Pharyngeal Erythema, Tonsillar Exudate, Tonsillar Swelling Neck: Positive for: Normal, Painless ROM Cardiovascular/Chest: Positive for: Regular Rate, Rhythm Respiratory: Positive for: CNT, Normal Breath Sounds Back: Positive for: Normal Inspection Extremity: Positive for: Normal ROM Neurologic/Psych: Positive for: Alert, Oriented - ECG O2 Sat by Pulse Oximetry: 99 Disposition - Clinical Impression Clinical Impression: Viral syndrome - Patient ED Disposition Is Patient to be Admitted: No Counseled Patient/Family Regarding: Diagnosis, Need For Followup, Rx Given - Disposition Referrals: [facility] [Outside] Disposition: Routine/Home Disposition Time: 18:17 Condition: GOOD Prescriptions: Guaifen/Phenyleph/Acetaminophn [Mucinex Fast-Max Cold & Sinus 325 mg-200 mg-5] 1 tab PO BID #14 tab Prednisone 50 mg PO ONCE #1 tablet Instructions: Viral Syndrome (DC)
== END 2018-01-03 18:29 | disposition home or self-care (01) ==
LOC: H.ER 16:24
DX: B34.9 Viral infection, unspecified (principal)

== ENCOUNTER 2018-05-10 15:59 | Emergency (ER) | payer SELFPAY ==
[2018-05-10 15:59] VITALS: BMI 27.9
[2018-05-10 16:14] VITALS: RESP 18; O2SAT 99
[2018-05-10] MEDS ORDERED: Naproxen 500 MG TAB PO ONE ×2 (16:52→17:47)
--- NOTE | 2018-05-10 17:24 | ED PDOC ---
History of Present Illness History of Present Illness: 33 year old female presents to the ED with bodyache, cough, congestion, sore throat, vomiting, and diarrhea for the past week. Patient also reports tactile fever. Patient has been taking Advil PM. Last dose of medication was taken yesterday evening. Patient has not taken any medications today. She also reports no vomiting or diarrhea today. She states she did not get a flu vaccine. Denies recent travel, abdominal pain, melena, or hematochezia. 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) Exam Limitations: no limitations Onset/Duration Of Symptoms: Other (x1 week) Symptoms include: fever, bodyaches, cough, nasal congestion, vomiting, diarrhea Past Medical History Reviewed: Historical Data, Nursing Documentation, Vital Signs Vital Signs: Last Vital Signs Temp 98.2 F 05/10/18 16:12 Pulse 82 05/10/18 16:12 Resp 18 05/10/18 16:12 BP 117/72 05/10/18 16:12 Pulse Ox 99 05/10/18 16:12 - Medical History PMH: No Chronic Diseases - Surgical History Surgical History: No Surg Hx Denies: Back Surgery, CABG - Family History Family History: States: Unknown Family Hx - Immunization History Hx Tetanus Toxoid Vaccination: No Hx Influenza Vaccination: No Hx Pneumococcal Vaccination: No - Home Medications Home Medications: Ambulatory Orders Medication Instructions Recorded Sulfamethoxazole/Trimethoprim 1 tab PO BID #20 tab 01/19/13 [Bactrim DS 800 mg-160 mg] Fluconazole [Diflucan] 150 mg PO ONCE #2 tab 02/15/14 Amoxicillin 500 mg PO TID 10 Days cap 04/25/14 Ibuprofen [Motrin] 600 mg PO Q8 PRN #6 tab 04/25/14 Nitrofurantoin Macrocrystals 100 mg PO BID #13 cap 12/06/14 [Macrobid] Phenazopyridine Hydrochlorid2 200 mg PO TID #5 tab 12/06/14 [Pyridium] Fluconazole [Diflucan] 150 mg PO ONCE #1 tab 07/08/15 Ibuprofen 600 mg PO Q6 PRN #15 tablet 07/08/15 Azithromycin [Zithromax] 250 mg PO DAILY #6 tab 12/23/15 Naproxen [Naprosyn Tab] 375 mg PO Q8 PRN #21 tab 09/12/16 diaZEpam [Valium] 5 mg PO Q6 PRN #6 tab 09/12/16 Naproxen [Naprosyn] 500 mg PO BID PRN #15 tablet 12/11/16 Fluconazole [Diflucan] 150 mg PO QWK #2 tab 02/12/17 Ibuprofen [Motrin Tab] 600 mg PO Q8 PRN #30 tab 02/12/17 Albuterol HFA [Ventolin HFA 90 2 puff IH [id number] PRN #60 puff 06/25/17 mcg/actuation (8 g)] Azithromycin [Z-Anthony] 250 mg PO DAILY #6 tab 06/25/17 Guaifen/Phenyleph/Acetaminophn 1 tab PO BID #14 tab 01/03/18 [Mucinex Fast-Max Cold & Sinus 325 mg-200 mg-5] Prednisone 50 mg PO ONCE #1 tablet 01/03/18 Benzonatate [Tessalon Perle] 100 mg PO Q8 PRN #10 capsule 05/10/18 - Allergies Allergies/Adverse Reactions: Allergies Allergy/AdvReac Type Severity Reaction Status Date / Time No Known Allergies Allergy Verified 05/10/18 16:12 Review of Systems ROS Statement: Except As Marked, All Systems Reviewed And Found Negative Constitutional: Positive for: Fever, Other (Bodyaches) ENT: Positive for: Nose Congestion, Throat Pain (throat pain) Respiratory: Positive for: Cough Gastrointestinal: Positive for: Vomiting, Diarrhea. Negative for: Abdominal Pain, Melena, Hematochezia Skin: Negative for: Rash Physical Exam - Reviewed Nursing Documentation Reviewed: Yes Vital Signs Reviewed: Yes - Physical Exam Appears: Positive for: No Acute Distress Skin: Positive for: Normal Color, Warm, Dry Eye Exam: Positive for: Normal appearance ENT: Positive for: Normal ENT Inspection Cardiovascular/Chest: Positive for: Regular Rate, Rhythm Respiratory: Positive for: Normal Breath Sounds. Negative for: Wheezing, Respiratory Distress Gastrointestinal/Abdominal: Positive for: Normal Exam, Soft. Negative for: Tenderness Medical Decision Making Medical Decision Making: Initial Impression: Influenza like symptoms Initial Plan: --ED urine --Naproxen 500mg PO --Zofran 4mg PO --Rapid strep Patient informed that she clinically has the flu but it is too late to get treated with Tamiflu. She will be treated, however, for symptoms. Patient agrees with the plan. 18:20 Upon reevaluation, patient is tolerating PO. Scribe Attestation: Documented by Gabe Christy acting as a scribe for Vincenzo WHITE. Provider Scribe Attestation: All medical record entries made by the Scribe were at my direction and personally dictated by me. I have reviewed the chart and agree that the record accurately reflects my personal performance of the history, physical exam, medical decision making, and the department course for this patient. I have also personally directed, reviewed, and agree with the discharge instructions and disposition. - ECG O2 Sat by Pulse Oximetry: 99 Disposition - Clinical Impression Clinical Impression: Influenza-like symptoms - Patient ED Disposition Is Patient to be Admitted: No - Disposition Referrals: [facility] [Outside] Disposition: Routine/Home Disposition Time: 18:15 Condition: IMPROVED Additional Instructions: FOLLOW UP WITH [facility] FOR FURTHER EVALUATION RETURN TO ED IMMEDIATELY IF SYMPTOMS WORSEN ELOISE FLOREZ, thank you for letting us take care of you today. Your provider was Shlomo Gallagher MD and you were treated for COUGH / FEVER. The emergency medical care you received today was directed at your acute symptoms. If you were prescribed any medication, please fill it and take as directed. It may take several days for your symptoms to resolve. Return to the Emergency Department if your symptoms worsen, do not improve, or if you have any other problems. Please contact your doctor or call one of the physicians/clinics you have been referred to that are listed on the Patient Visit Information form that is included in your discharge packet. Bring any paperwork you were given at discharge with you along with any medications you are taking to your follow up visit. Our treatment cannot replace ongoing medical care by a primary care provider outside of the emergency department. Thank you for allowing the [facility] team to be part of your care today. If you had an X-Ray or CT scan: A Radiologist will review the ED reading if any change in treatment is needed we will contact you. If you had a blood, urine, or wound culture: It will take several days for the results, if any change in treatment is needed we will contact you. If you had an STI test: It will take 48 hours for the results. Please call after 1 week if you have not heard back. Prescriptions: Benzonatate [Tessalon Perle] 100 mg PO Q8 PRN #10 capsule PRN Reason: Cough Instructions: Flu, Adult (DC) Forms: QuickProNotes (Arabic) Print Language: NEPALI
[2018-05-10 19:09] VITALS: BP 112/78; PULSE 78; TEMP 98.8
== END 2018-05-10 19:09 | disposition home or self-care (01) ==
LOC: H.ER 15:59
DX: J11.1 Influenza due to unidentified influenza virus with other respiratory manifestations (principal); R11.10 Vomiting, unspecified